=== PATIENT | female | born 1975 | race African-American/Black ===

== ENCOUNTER 2024-01-22 10:05 | Emergency (ER) | payer OTHER ==
[2024-01-22 10:20] VITALS: BP 145/91; PULSE 109; RESP 20; TEMP 98; BMI 21.7
[2024-01-22 12:26] LABS: BASO % 0.9 % (0-2.0); EOS % 1.4 % (0-4.5); HEMATOCRIT 40.5 % (32.4-45.2); HEMOGLOBIN 13.6 GM/dL (10.7-15.3); LYMPH % 32.4 % (8-40); MCHC 33.7 g/dl (32.0-36.0); MEAN CELL VOLUME 91.8 fl (80-96); MEAN PLT VOLUME 7.2 fl (7.5-11.1); MONO % 8.4 % (3.8-10.2); NEUT % 56.9 % (42.8-82.8); PLATELET COUNT 321 10^3/uL (134-434); RBC 4.41 M/mm3 (3.60-5.2); RDW 13.4 % (11.6-15.6); WHITE BLOOD COUNT 5.5 K/mm3 (4.0-10.0)
[2024-01-22 12:32] LABS: INR 0.91 (0.83-1.09); PROTHROMBIN TIME (PATIENT) 10.3 SEC (9.7-13.0)
[2024-01-22 12:35] LABS: POTASSIUM 4.2 mmol/L (3.5-5.1)
[2024-01-22 12:35] LABS: ACTIVATED PTT 30.4 SECONDS (25.2-36.5)
[2024-01-22 12:37] LABS: CALCIUM 9.5 mg/dL (8.5-10.1)
[2024-01-22 12:38] LABS: ALBUMIN 3.9 g/dl (3.4-5.0); BLOOD UREA NITROGEN 12.8 mg/dL (7-18)
[2024-01-22 12:41] LABS: CREATININE 0.7 mg/dL (0.55-1.3)
[2024-01-22] MEDS: SODIUM CHLORIDE 0.9% 500 ML INFUS.BAG IV ONE (12:42)
[2024-01-22 12:43] LABS: BILIRUBIN,TOTAL 0.3 mg/dL (0.2-1); TOT PROT 8.2 g/dl (6.4-8.2)
== END 2024-01-22 16:02 | disposition home or self-care (01) ==
LOC: JER 10:05 → JERFT 10:05
DX: R07.81 Pleurodynia (principal); M54.6 Pain in thoracic spine
CPT/HCPCS: 36415; 71046-TC-FY; 71275-TC; 80053; 84703; 85025; 85610; 85730; 93005; 93010; 99285-25; Q9967

== ENCOUNTER 2024-12-08 08:07 | Emergency (ER) | payer OTHER ==
[2024-12-08 08:14] VITALS: BP 144/84; PULSE 87; RESP 18; TEMP 98.6; BMI 22.3
[2024-12-08] MEDS ORDERED: KETOROLAC TROMETHAMINE 30 MG/1 ML VIAL ONE (08:37)
[2024-12-08] MEDS: KETOROLAC TROMETHAMINE 30 MG/1 ML VIAL IM ONE (08:40)
== END 2024-12-08 08:58 | disposition home or self-care (01) ==
LOC: JERFT 08:07
PROC: 3E0233Z Introduction of Anti-inflammatory into Muscle, Percutaneous Approach (ICD-10-PCS; principal; 2024-12-08)
DX: M77.8 Other enthesopathies, not elsewhere classified (principal); M25.511 Pain in right shoulder; M25.512 Pain in left shoulder; R20.0 Anesthesia of skin
CPT/HCPCS: 99284-25